=== PATIENT | female | born 1980 | race Asian ===

== ENCOUNTER → 2017-11-27 | Outpatient (CLI) | payer OTHER ==
[~2017-11-27] MED LIST: CYCL10TA29 PO; IBUP800T37 PO; OXYC-865 PO; TENO60PO PO
--- NOTE | 2017-11-27 12:05 | RADIOLOGY IMAGING REPORT ---
FACILITY: [facility] PATIENT NAME: Benjie Shields : 1980 MR: [id number] V: [id number] EXAM DATE: ORDERING PHYSICIAN: SARAH WILKS TECHNOLOGIST: Location: [facility] [place] Patient: Benjie Shields : 1980 Visit/Account:[id number] Date of Sevice: 11/27/2017 LIVER HISTORY: hepatitis B infection x20 years COMPARISON: Liver ultrasound February 28, 2016 FINDINGS: Gallbladder: Unremarkable; no stones or sludge. Liver: The liver appears mildly heterogeneous although discrete mass is not identified Common duct: Normal, two mm diameter. Pancreas: Partially obscured by bowel, visualized aspects unremarkable. Right kidney: Unremarkable as imaged measuring 11 cm in length Upper abdominal aorta and IVC: Patent. Ascites: None visualized. IMPRESSION: Liver appears heterogeneous although discrete mass is not demonstrated Report Dictated By: Latoya Marcus MD at 11/27/2017 11:58 AM Report E-Signed By: Latoya Marcus MD at 11/27/2017 12:02 PM COCON:GERMAN
== END ==
LOC: US 01:23
PROVIDERS: ATTEND Internal Medicine
DX: R16.0 Hepatomegaly, not elsewhere classified (principal)
CPT/HCPCS: 76705

== ENCOUNTER 2018-09-28 01:40 | Inpatient (IN) | payer OTHER ==
[~2018-09-28] VITALS: Ht 165.1 cm; Wt 73.9 kg
[2018-09-28] VITALS (31 sets, daily range): BP systolic 87–189; BP diastolic 53–130; Ht 165.1 cm; Wt 73.9 kg
[2018-09-28] MEDS ORDERED: LR(*) 1000 ML BAG 1,000 ML IV PRN (01:42)
[2018-09-28] MEDS ORDERED: MAGNESIUM SUL* 4 GM/100 ML BAG 100 ML IVPB ONE (02:15)
[2018-09-28] MEDS ORDERED: LABETALOL HCL 20 MG/4 ML SYR IVP PRN ×2 (02:15→03:10)
[2018-09-28] MEDS ORDERED: hydrALAZINE HCL 20 MG/ML VIAL IVP PRN (02:15)
[2018-09-28] MEDS ORDERED: CALCIUM GLUC 10% 100 MG/ML VL IVP ONE (02:15)
[2018-09-28] MEDS ORDERED: NIFEdipine 10 MG CAP PO STA (02:32)
[2018-09-28] MEDS ORDERED: NIFEdipine 10 MG CAP PO ONE (02:40)
[2018-09-28] MEDS ORDERED: ONDANSETRON 4 MG/2 ML VIAL ONE (02:55)
[2018-09-28] MEDS ORDERED: OXYTOCIN 10 UNIT/ML SDV ONE (02:55)
[2018-09-28] MEDS ORDERED: fentaNYL CITR 100 MCG/2 ML AMP ONE (02:55)
[2018-09-28] MEDS ORDERED: MORPHINE PF 5 MG/10 ML AMP ONE (02:55)
[2018-09-28 03:00] LABS: PLATELET COUNT, AUTOMATED 136 K/uL (150-450)
--- NOTE | 2018-09-28 03:06 | History & Physical ---
History of Present Illness Estimated Gestational Age: 37.3 Chief Complaint Uterine contractions History of Present Illness 38-year-old at 37w3d presents to L&D for complaints of contractions. She denies vaginal bleeding. She reports movement. She does report headache, blurry vision and right upper quadrant abdominal pain. She reports her blood pressure was elevated last week. She is scheduled for a repeat cesa rean this next week. Her PNC is by [facility]. is complicated by AMA ([id number] normal), hepatitis B positive (viral load <1), a [id number] posterior fibroid and history of delivery. History Patient's Blood Type: B Positive Rubella Status: Immune Group B Strep Screen: Negative Obstetrical History: G1: 41wk PLTCD in 2012 G2: 11/2017 SAB G3: Current Past Medical History: PMH: Hepatitis B PSH: Allergies: Coded Allergies: No Known Drug Allergies (Unverified , 10/05/16) Social History: No T/E/D. . Med Rec Home Meds Active Scripts Cyclobenzaprine Hcl (CYCLOBENZAPRINE HCL) 10 Mg Tablet, 5-10 MG PO TID PRN for MUSCLE SPASMS, #30 TAB Prov:JOHN MIRELES PRESS OPERATOR AUTOMATIC 10/05/16 Reported Medications Tenofovir Disoproxil Fumarate (VIREAD) 60 Gm Powder, 60 GM PO 10/05/16 Review of Systems Constitutional: No Fever Neurological: No Syncope Eyes: Vision Change Cardiovascular: No Chest Pain Respiratory: No Shortness of Breath, No Cough Gastrointestinal: No Nausea, No Vomiting, No Diarrhea; Abdominal Pain Genitourinary: No Dysuria Musculoskeletal: No Pain Psychiatric: No Depression, No Anxiety Exam General Exam Vital Signs Severe BPs on admission; General Apperance: Alert/Awake/No Acute Distress Neuro: No Gross deficits Eyes: Normal Extraocular Movement & Vison Cardiovascular: Regular Rate and Rhythm Respiratory: No Respiratory Distress, Clear to Auscultation Abdomen: Gravid - Non-Tender : Normal Musculoskeletal: No Weakness/Pain Extremities: Reflexes (3/4 bilateral lower extremities DTR ), Clonus, Edema (1+ bilateral LE) Integumentary: Skin Intact without Lesions or Rash Psychological: Alert & Oriented X3, Appropriate Mood & Affect Cervical Dialation: 1 Cervical Effacement (%): 75 Uterine Contractions(Q min): 4 Uterine Contraction Strength: Mild UC Resting Tone: Soft Fetus Feeling Movement?: Yes FHT Category: I Medical Decision Making Pre-Admit Course Medical Record Review: Yes VTE Prophylasis: Adult Deep Vein Thrombosis/Pulmonary: No Pharmacological Contraindicati: Surgical Contraindication Assessment and Plan Problems: (1) Severe pre-eclampsia in third trimester Assessment & Plan: 38-year-old at 37w3d presented to L&D for complaints of contractions. She is found to have severe range BP. She was given one dose of Procardia po during attempts at IV start. She then was given Labetalol 20mg IV but not great response. I have now ordered Labetalol 40mg IV. Labs pending. Magnesium started. Once stabilized, will proceed to the OR. (2) History of delivery affecting Assessment & Plan: She is planning a repeat CD. Will proceed to the OR once stable from a preeclampsia standpoint. (3) Hepatitis B affecting Assessment & Plan: Last viral load nondetectable, per record, but I am not certain when that lab was drawn. (4) AMA (advanced maternal age) multigravida 35+ Assessment & Plan: [id number] normal. Reassuring anatomy ultrasound. (5) 37 weeks gestation of FREDERICK HOANG MD Sep 28, 2018 02:51
[2018-09-28] MEDS ORDERED: CLINDAMYCIN(*) 900 MG/NS 50 ML 50 ML IVPB ONE (03:20)
[2018-09-28] MEDS ORDERED: LR(*) 1000 ML BAG 1,000 ML IV SCH (03:22)
[2018-09-28] MEDS ORDERED: FAMOTIDINE(*) 20MG/50ML PREMIX 50 ML IVPB ONE ×2 (03:25→09:19)
[2018-09-28] MEDS ORDERED: FAMOTIDINE 20 MG/50 ML PREMIX IVPB ONE (03:25)
[2018-09-28] MEDS ORDERED: METOCLOPRAMIDE 10 MG/2 ML SDV IVP ONE (03:25)
[2018-09-28] MEDS: MAGNESIUM SULF 20 GM/500 ML IV 500 ML IV SCH ×2 (03:28→12:27)
[2018-09-28] MEDS ORDERED: ONDANSETRON 4 MG/2 ML VIAL IVP ONE (03:30)
--- NOTE | 2018-09-28 03:43 | Labor Progress Note ---
Labor Subjective Progress Notes Subjective Pt reports feeling much improved. She has now consulted with DIRECTOR INTELLIGENCE [employer]. She has no questions about . Labs from [facility] received: -11/21/2017: Hep B viral load not detectable -09/18/18: PLT 132 -09/19/18: 24hr urine protein 220mg Labor Objective Vital Signs Last BP much improved - see QS Fetus FHT Category: I General Exam General Appearance: Alert/Awake/No Acute Distress Psychological: Alert & Oriented X3, Appropriate Mood & Affect Other Result Diagram: 09/28/18 0245 09/28/18 0245 Assessment and Plan Problems: (1) Severe pre-eclampsia in third trimester Assessment & Plan: Blood pressure finally responded to Labetalol 40mg once. Her platelets are stable from 132 on 09/18/18. CMP is normal. Pr:Cr = 4.4. Will proceed to the OR with spinal anesthetic. Continue magnesium. (2) History of delivery affecting Assessment & Plan: She is planning a repeat CD. Will proceed to the OR. (3) Hepatitis B affecting Assessment & Plan: Last viral load nondetectable 11/21/2017. (4) AMA (advanced maternal age) multigravida 35+ Assessment & Plan: [id number] normal. Reassuring anatomy ultrasound. (5) 37 weeks gestation of FREDERICK HOANG MD Sep 28, 2018 03:43
[2018-09-28] MEDS ORDERED: KETOROLAC 30 MG/ML VIAL ONE (03:46)
[2018-09-28] MEDS ORDERED: ePHEDrine 25 MG/5 ML DISP.SYR IVP ONE ×2 (03:54→04:35)
[2018-09-28] MEDS ORDERED: DLR(*) 1000 ML BAG 1,000 ML IV PRN (04:59)
[2018-09-28] MEDS ORDERED: OXYTOCIN 30 UNIT/D5LR 500 ML 500 ML IV PRN (04:59)
--- NOTE | 2018-09-28 04:59 | Post Operative Note ---
Operative Note - TRUST MANAGER Operative Day Date: Sep 28, 2018 Physicians Surgeon: Delia Anesthesia: Spinal, Aleyda Nath Diagnosis Pre-Op Diagnosis: IUP at 37w3d with history of delivery and desire for repeat Preeclampsia with severe features Post-Op Diagnosis: IUP at 37w3d with history of delivery and desire for repeat Preeclampsia with severe features Viable male at 0406hrs, 2520g (5#8.9oz), Apgars 9/9 Procedure Procedure(s): RLTCD Specimen Removed:(Maybe N/A): None Fluids Fluids: IVF: 700cc UOP: 400cc Estimated Blood Loss: 700cc FREDERICK OHANG MD Sep 28, 2018 04:59
[2018-09-28] MEDS ORDERED: ONDANSETRON 4 MG/2 ML VIAL IV PRN (05:00)
[2018-09-28] MEDS ORDERED: PROMETHAZINE 25 MG/ML 1 ML AMP IVP PRN (05:00)
[2018-09-28] MEDS ORDERED: MAGNESIUM HYDROXIDE* 30ML UDCP PO PRN (05:00)
[2018-09-28] MEDS ORDERED: ACETAMINOPHEN 325 MG TAB PO PRN (05:00)
[2018-09-28] MEDS ORDERED: LANOLIN OINT 7 GM TUBE TP PRN (05:00)
[2018-09-28] MEDS ORDERED: MEASLES,MUMP,RUBELLA VAC 0.5ML SC ONE (05:00)
[2018-09-28] MEDS ORDERED: SIMETHICONE 80 MG CHEW CHEW PRN (05:00)
[2018-09-28] MEDS ORDERED: DIPHTH/TETANUS/ACEL. PERTUSSIS IM ONE (05:00)
[2018-09-28] MEDS ORDERED: INFLUENZA VIRUS VAC 0.5ML SYR IM ONE (05:00)
--- NOTE | 2018-09-28 05:00 | Anesthesia OB Pre-Anes Eval ---
History of Present Illness Anesthesia Start Date: Sep 28, 2018 Anesthesia Start Time: 03:37 OB Anesthesia Diagnosis: repeat c/section Current Complication: gestational hypertention EDC: Oct 16, 2018 : 3 Para: 1 Vital Signs: Vital Signs 09/28/18 04:40 Temp 98.0 Pulse 78 Resp 24 B/P (MAP) 89/64 (72) Pulse Ox 97 O2 Delivery Nasal Cannula O2 Flow Rate 2.0 Pain Ratin Heart Tones: 132 Result Diagram: 09/28/185 09/28/18244 Height (Inches): 65 Weight (Pounds): 1341 Past Medical History Medical History: other (Hep B) Surgical History: Previous Anesthesia: spinal Attended Childbirth Classes?: No Hx Anesthesia Reactions: No Hx Family Anesthesia Reaction: No Current Medications: magnesium sulfate Home Meds Active Scripts Cyclobenzaprine Hcl (CYCLOBENZAPRINE HCL) 10 Mg Tablet, 5-10 MG PO TID PRN for MUSCLE SPASMS, #30 TAB Prov:JOHN MIRELES AIRCRAFT ENGINE ASSEMBLER 10/05/16 Reported Medications Tenofovir Disoproxil Fumarate (VIREAD) 60 Gm Powder, 60 GM PO 10/05/16 Allergies: Coded Allergies: No Known Drug Allergies (Unverified , 10/05/16) Anesthesia OB ROS Neurological: No migraines/headaches, No seizures, No neuropathy, No other ENT: Denies Tooth caps, Denies Loose teeth, Denies Chipped teeth, Denies Dentures, Denies Bridges, Denies Retainers, Denies Veneers, Denies Implants, Denies Tongue ring, Denies Other Pulmonary: No asthma, No smoker (pks/day/yrs), No other Airway Class: ll Cardiovascular ROS: No edema, No arrhythmia, No other GI ROS: NPO Last Solids Date: Sep 27, 2018 Last Solids Time: 19:30 ROS: Other (Hep B) Endocrine ROS: No diabetes, No gestational diabetes, No thyroid disorder, No other Musculoskeletal ROS: No low back pain, No low back injury, No scoliosis, No other Assessment and Plan Anesthesia Plan: SAB Anesthesia Stop Day: Sep 28, 2018 Anesthesia Stop Time: 04:48 CATHERINE JONAS CRNA Sep 28, 2018 05:00
[2018-09-28] MEDS ORDERED: KETOROLAC 30 MG/ML VIAL IVP SCH ×2 (06:00→10:30)
[2018-09-28] MEDS ORDERED: PREN1COM5 PO (07:30)
--- NOTE | 2018-09-28 08:15 | OB/GYN Progress Note ---
OB Subjective Progress Notes Subjective Pt is sleeping heavily right now. RN reports minimal pain prior to her nap, normal lochia and no preeclampsia symptoms prior to nap. OB Objective Physical Exam Vital Signs Date Time Temp Pulse Resp B/P (MAP) Pulse Ox O2 Delivery O2 Flow Rate FiO2 09/28/18 05:55 98.0 78 16 102/59 (73) 93 Room Air 09/28/18 05:35 2.0 Intake and Output 09/28/18 07:00 Output Total 50 ml Balance -50 ml Output Urine Total 50 ml General Appearance: Other (Sleeping) Respiratory: No Respiratory Distress Result Diagram: 09/28/1824409/28/18244 Assessment and Plan Problems: (1) Severe pre-eclampsia in third trimester Assessment & Plan: Pt will continue magnesium until 0500 09/29/18. Matute to stay in until that time. Labs ordered for 0900. BP is quite low right now, most likely due to combination of antihypertensives and spinal. Will continue to monitor closely for symptoms or signs of worsening status. (2) Status post delivery Assessment & Plan: POD#0 s/p RLTCD. Routine postop orders. (3) Hepatitis B affecting Assessment & Plan: Last viral load nondetectable 11/21/2017. Peds has been notified. (4) History of delivery affecting FREDERICK HOANG MD Sep 28, 2018 08:15
[2018-09-28] MEDS: DOCUSATE CALCIUM 240 MG CAP PO SCH ×2 (09:00→22:40)
[2018-09-28] MEDS: FAMOTIDINE 20 MG TAB PO SCH ×2 (09:00→22:40)
[2018-09-28] MEDS ORDERED: FLUSH 10 ML SYR IV SCH (09:00)
[2018-09-28] MEDS ORDERED: IBUPROFEN 800 MG TAB PO SCH (09:00)
[2018-09-28] MEDS ORDERED: CLINDAMYCIN(*) 900 MG/NS 50 ML 50 ML ONE (09:19)
[2018-09-28] MEDS ORDERED: METOCLOPRAMIDE 10 MG/2 ML SDV ONE (09:20)
[2018-09-28] MEDS: KETOROLAC 30 MG/ML VIAL IVP SCH ×2 (12:26→18:11)
--- NOTE | 2018-09-28 14:21 | Anesthesia Post Eval Note ---
Anesthesia Post Eval Note Vital Signs 09/28/18 09/28/18 09/28/18 09/28/18 05:35 05:55 11:30 12:30 Temp 98.0 Pulse 83 Resp 16 B/P (MAP) 105/64 (78) Pulse Ox 91 O2 Delivery Room Air O2 Flow Rate 2.0 Pt able to participate in Eval: Yes Cardiovascular Status: Satisfactory Respiratory Status: Satisfactory Pain Managment: Satisfactory PO Nausea/Vomiting: Satisfactory Temperature Management: Satisfactory Mental Status: Satisfactory, Alert, Oriented X3 Post-Op Hydration Status: Satisfactory, Tolerating PO Well Anesthesia Tolerance: Remains on bedrest and Mag. chava hodgson BETH CRNA Sep 28, 2018 14:21
[2018-09-28] MEDS: DLR(*) 1000 ML BAG 1,000 ML IV PRN (15:50)
[2018-09-28] MEDS ORDERED: MAGNESIUM SULF 20 GM/500 ML IV 500 ML IV SCH (21:34)
[2018-09-28] MEDS ORDERED: MAGNESIUM SULF 20 GM/500 ML IV 500 ML ONE (22:03)
[2018-09-29] VITALS (12 sets, daily range): BP systolic 98–122; BP diastolic 63–79
--- NOTE | 2018-09-29 00:42 | OPERATIVE REPORT 1 ---
EVENT DATE: September 28, 2018 SURGEON: Jane Lin MD ANESTHESIA: Spinal by Aleyda Nath CRNA PREOPERATIVE DIAGNOSES 1. Intrauterine at 37 weeks and 3 days, with history of delivery and desire for repeat. 2. Preeclampsia with severe features. POSTOPERATIVE DIAGNOSES 1. Intrauterine at 37 weeks and 3 days, with history of delivery and desire for repeat. 2. Preeclampsia with severe features. 3. Delivery of a viable male infant at 0406 hours, weighing 2520 g or 5 pounds 8.9 ounces, with Apgars of 9 at one minutes and 9 at five minutes. PROCEDURE PERFORMED Repeat low transverse delivery. INTRAVENOUS FLUIDS 700 mL. URINE OUTPUT 400 mL ESTIMATED BLOOD LOSS 700 mL. INDICATIONS FOR PROCEDURE This patient is a 38-year-old 3, para 1-0-1-1, who presents at 37 weeks and 3 days to Labor and Delivery with complaints of uterine contractions. At the time of presentation, she was noted to have extremely elevated blood pressures in the 180/120 range. She was admitted and administered nifedipine 10 mg orally, as she did not yet have an IV. An IV access was then obtained, and she received 20 mg of labetalol IV. Magnesium bolus was then initiated. The patient did not have a very good response from the labetalol or Procardia. Therefore, she was given labetalol 40 mg IV, which she did finally respond to. Her blood pressure came down to within normal limits, and she began feeling better. At this time, she was consented for a repeat delivery, given that she was contacting every four minutes and is greater than 37 weeks with severe preeclampsia. After discussing the risks, benefits, and alternatives, the patient did elect to proceed. Please see the history and physical for full details. DESCRIPTION OF PROCEDURE The patient was properly identified and taken to the operating room. She was administered a spinal anesthetic and placed in the dorsal lithotomy position. The Matute catheter was then place, and she was prepped and draped in the usual fashion for a lower abdominal surgery. After adequate anesthesia was confirmed, her prior incision was noted to have a keloid scar. This scar was excised sharply, and the incision was then carried down to the level of the rectus fascia, which was nicked in the midline, and the incision was extended bilaterally. The rectus fascia was from the underlying rectus muscle using a combination of electrosurgery and blunt dissection. This was dissected up to the infraumbilical plane. The peritoneum was then identified and entered in a sharp fashion, and the abdominal incision was extended with a combination of blunt and electrocautery. At this time, a bladder blade was then placed, and the vesicouterine peritoneum was brought down off the lower uterine segment to allow for a hysterotomy safely. The hysterotomy was then performed without difficulty and extended in a cephalocaudad manner. The amniotic sac was then ruptured with return of clear fluid. The 's vertex was then delivered easily, followed by the anterior shoulder and posterior shoulder. The remainder of the was easily delivered. The had spontaneous cry and spontaneous movement of all four extremities. The infant's oropharynx and nasopharynx were bulb-suctioned, and the was dried and stimulated. After 40 seconds, the cord was clamped x2 and cut, and the infant was passed to nursing personnel in good condition. Dr. Fish was present at the time of delivery. Placenta was then delivered manually and passed off the table and sent to pathology. Pitocin was started through the IV fluid to help firm the uterus. The patient did have a known 6 cm fibroid antenatally; therefore, the uterus was chosen not to be exteriorized. The uterus was cleared of any remaining clots or debris. The uterine incision was then reapproximated using an 0 Vicryl working from one apex to the next. A second imbricating layer of 0 Monocryl was then utilized to reapproximate the uterine incision. Hemostasis was then assured. The paracolic gutters were cleared of clots or debris. The peritoneum was then identified and reapproximated using a 3-0 Monocryl, followed by reapproximation of the rectus muscle in the midline. The rectus muscle was then copiously irrigated and noted to be hemostatic. The rectus fascia was then reapproximated using an 0 Vicryl in a running nonlocking fashion, working from one apex to the next. The subcutaneous tissue was irrigated and made hemostatic with electrocautery. The subcutaneous tissue was then reapproximated using a 3-0 Monocryl, followed by closure of the skin with Insorb danae. A Primapore dressing was placed, followed by a pressure dressing. The patient tolerated this procedure well and recovered in Labor and Delivery with her . Her magnesium will remain for at least 24 hours after delivery. [facility]
[2018-09-29] MEDS: KETOROLAC 30 MG/ML VIAL IVP SCH (01:30)
[2018-09-29] MEDS: DLR(*) 1000 ML BAG 1,000 ML IV PRN (01:54)
[2018-09-29] MEDS: IBUPROFEN 800 MG TAB PO SCH ×3 (06:11→22:45)
--- NOTE | 2018-09-29 07:17 | RADIOLOGY IMAGING REPORT ---
FACILITY: [facility] PATIENT NAME: Benjie Shields : 1980 MR: [id number] V: [id number] EXAM DATE: ORDERING PHYSICIAN: FREDERICK HOANG TECHNOLOGIST: Location: [facility] [place] Patient: Benjie Shielsd : 1980 Visit/Account:[id number] Date of Sevice: 09/29/2018 EXAMINATION: Portable chest radiograph single view at 0648 hours HISTORY: Chest pressure with diminished lung sounds. COMPARISON: None. FINDINGS: A single portable AP view of the chest is obtained. Lines/tubes: None. Lungs/pleura: No focal consolidation or pleural effusion. Heart: Negative. Mediastinum: Negative. Bony structures/body wall: Negative. IMPRESSION: No radiographic evidence of acute cardiopulmonary disease. Report Dictated By: Shi Shipman MD at 09/29/2018 7:12 AM Report E-Signed By: Shi Shipman MD at 09/29/2018 7:13 AM WSN:[id number]
--- NOTE | 2018-09-29 08:57 | OB/GYN Progress Note ---
OB Subjective Progress Notes Subjective Was on magnesium until this morning at 0400. Feeling improved since it was stopped. Has not ambulated yet. Pressures are stable. GI: NEG Nausea : Voiding Well (catheter) Pain: Mild OB Objective Physical Exam Vital Signs Date Time Temp Pulse Resp B/P (MAP) Pulse Ox O2 Delivery O2 Flow Rate FiO2 09/29/18 07:56 98.1 83 15 110/77 (88) 96 Room Air 09/29/18 06:30 1.0 Intake and Output 09/29/18 07:00 Intake Total 3914 ml Output Total 5185 ml Balance -1271 ml Intake Oral 380 ml IV Total 3534 ml Output Urine Total 5185 ml # Voids 2 General Appearance: Alert/Awake/No Acute Distress, Other (Sleeping) Neurological: No Gross deficits Cardiovascular: Normal Rhythm & Peripheral Pulses, Regular Rate and Rhythm Respiratory: No Respiratory Distress, Clear to Auscultation Abdomen: Soft, Non-Tender, Non-Distended Incision: Clean, Dry, Intact Psychological: Alert & Oriented X3, Appropriate Mood & Affect Result Diagram: 09/29/1852009/29/18520 Assessment and Plan JET MECHANIC Plan: Routine Post- Care, Routine Post-Op Care Problems: (1) Severe pre-eclampsia in third trimester Assessment & Plan: BPs stable and had no lab abnormalities. Continue to monitor. (2) 37 weeks gestation of (3) Hepatitis B affecting (4) AMA (advanced maternal age) multigravida 35+ (5) Other specified aftercare following surgery Assessment & Plan: Ambulate later today. May shower later if stable on her feet. TYLER BRIDGES MD Sep 29, 2018 08:57
[2018-09-29] MEDS: FAMOTIDINE 20 MG TAB PO SCH ×2 (10:17→21:12)
[2018-09-29] MEDS: DOCUSATE CALCIUM 240 MG CAP PO SCH ×2 (10:17→21:12)
[2018-09-30] VITALS (23 sets, daily range): BP systolic 127–163; BP diastolic 87–115
[2018-09-30] MEDS: IBUPROFEN 800 MG TAB PO SCH ×3 (06:08→21:22)
[2018-09-30 06:41] LABS: PLATELET COUNT, AUTOMATED 113 K/uL (150-450)
[2018-09-30] MEDS ORDERED: LABETALOL HCL 100 MG TAB PO ONE ×2 (08:00→17:15)
--- NOTE | 2018-09-30 08:01 | OB/GYN Progress Note ---
OB Subjective Progress Notes Subjective Blood pressure has come up consistently. Otherwise feeling well. GI: NEG Nausea : Voiding Well Pain: Mild OB Objective Physical Exam Vital Signs Date Time Temp Pulse Resp B/P (MAP) Pulse Ox O2 Delivery O2 Flow Rate FiO2 09/30/18 07:00 16 145/105 (118) 09/30/18 06:10 97.3 81 Room Air 09/29/18 21:01 90 09/29/18 06:30 1.0 Intake and Output 09/30/18 07:00 Intake Total 450 ml Output Total 200 ml Balance 250 ml Intake Oral 450 ml Output Urine Total 200 ml # Voids 3 General Appearance: Alert/Awake/No Acute Distress, Other (Sleeping) Neurological: No Gross deficits Cardiovascular: Normal Rhythm & Peripheral Pulses, Regular Rate and Rhythm Respiratory: No Respiratory Distress, Clear to Auscultation Abdomen: Soft, Non-Tender, Non-Distended Incision: Clean, Dry, Intact Psychological: Alert & Oriented X3, Appropriate Mood & Affect Result Diagram: 09/30/1831 09/30/18 0615 Assessment and Plan MEDICAL EDUCATOR Plan: Routine Post- Care, Routine Post-Op Care Problems: (1) Severe pre-eclampsia in third trimester (2) 37 weeks gestation of (3) Hepatitis B affecting (4) AMA (advanced maternal age) multigravida 35+ (5) Other specified aftercare following surgery Assessment & Plan: Started Labetalol today. Will see how she responds today. Labs trending normal. Probable home or discharge to room in tomorrow. TYLER BRIDGES MD Sep 30, 2018 08:01
[2018-09-30] MEDS: FAMOTIDINE 20 MG TAB PO SCH ×2 (09:32→21:23)
[2018-09-30] MEDS: DOCUSATE CALCIUM 240 MG CAP PO SCH ×2 (09:32→21:23)
[2018-09-30] MEDS ORDERED: LABETALOL HCL 100 MG TAB PO SCH ×2 (21:00)
[2018-09-30] MEDS ORDERED: NIFEdipine XL 30 MG TABCR PO ONE (22:10)
[2018-10-01] VITALS (9 sets, daily range): BP systolic 109–145; BP diastolic 84–101
[2018-10-01] MEDS: LABETALOL HCL 100 MG TAB PO SCH ×3 (04:06→20:30)
[2018-10-01] MEDS: IBUPROFEN 800 MG TAB PO SCH ×3 (05:54→21:25)
[2018-10-01] MEDS: DOCUSATE CALCIUM 240 MG CAP PO SCH ×2 (09:04→20:30)
[2018-10-01] MEDS: FAMOTIDINE 20 MG TAB PO SCH ×2 (09:04→20:30)
--- NOTE | 2018-10-01 09:40 | OB/GYN Progress Note ---
OB Subjective Progress Notes Subjective Was having BP problems again last night on Labetalol 200 mg BID. Increased to 200 mg q8h and added Procardia ER 60 mg PO x 1 last night and BP improved. She remained asymptomatic during this time. She otherwise is well, just tired. Her pain is well controlled with medication and is ambulating to BR well with no difficulty voiding. GI: NEG Nausea : Voiding Well Pain: Mild OB Objective Physical Exam Vital Signs Date Time Temp Pulse Resp B/P (MAP) Pulse Ox O2 Delivery O2 Flow Rate FiO2 10/01/18 08:15 97.8 89 16 132/101 (111) 94 Room Air 09/29/18 06:30 1.0 Intake and Output 10/01/18 07:00 Intake Total 1160 ml Balance 1160 ml Intake Oral 1160 ml # Voids 6 General Appearance: Alert/Awake/No Acute Distress, Other (Sleeping) Neurological: No Gross deficits Cardiovascular: Normal Rhythm & Peripheral Pulses, Regular Rate and Rhythm Respiratory: No Respiratory Distress, Clear to Auscultation Abdomen: Soft, Non-Tender, Non-Distended Incision: Clean, Dry, Intact Extremities: No Cyanosis,Clubbing or Edema Integumentary: Skin Intact without Lesions or Rash Psychological: Alert & Oriented X3, Appropriate Mood & Affect Result Diagram: 09/30/18 0631 09/30/18 0615 Assessment and Plan Problems: (1) Severe pre-eclampsia in third trimester Assessment & Plan: Continue this BP medication at this schedule and monitor for stability. Adjust as needed. Will likely need another day. (2) 37 weeks gestation of (3) Hepatitis B affecting (4) AMA (advanced maternal age) multigravida 35+ (5) Other specified aftercare following surgery Assessment & Plan: Routine postoperative care. TYLER BRIDGES MD Oct 01, 2018 09:39
[2018-10-01] MEDS ORDERED: ONDANSETRON 4 MG ODT TABDP SL PRN (17:45)
[2018-10-01] MEDS ORDERED: ACETA/BUTAL/CAFF 325/50/40 TAB PO PRN (17:45)
[2018-10-01] MEDS ORDERED: NIFEdipine XL 30 MG TABCR PO SCH (22:00)
[2018-10-02 03:29] VITALS: BP 121/89
[2018-10-02] MEDS: LABETALOL HCL 100 MG TAB PO SCH ×2 (03:31→12:57)
[2018-10-02] MEDS: IBUPROFEN 800 MG TAB PO SCH (07:12)
[2018-10-02 08:00] VITALS: BP 118/81
--- NOTE | 2018-10-02 08:51 | OB/GYN Progress Note ---
OB Subjective Progress Notes Subjective Doing well. No problems. BP stable now on PO meds. Headache yesterday relieved by Fioricet. GI: NEG Nausea : Voiding Well Pain: Mild OB Objective Physical Exam Vital Signs Date Time Temp Pulse Resp B/P (MAP) Pulse Ox O2 Delivery O2 Flow Rate FiO2 10/02/18 03:29 98.4 68 15 121/89 (100) 92 Room Air 09/29/18 06:30 1.0 Intake and Output 10/02/18 07:00 Intake Total 1260 ml Balance 1260 ml Intake Oral 1260 ml # Voids 1 General Appearance: Alert/Awake/No Acute Distress, Other (Sleeping) Neurological: No Gross deficits Cardiovascular: Normal Rhythm & Peripheral Pulses, Regular Rate and Rhythm Respiratory: No Respiratory Distress, Clear to Auscultation Abdomen: Soft, Non-Tender, Non-Distended Incision: Clean, Dry, Intact Extremities: No Cyanosis,Clubbing or Edema Integumentary: Skin Intact without Lesions or Rash Psychological: Alert & Oriented X3, Appropriate Mood & Affect Result Diagram: 09/30/1831 09/30/18 0615 Assessment and Plan Problems: (1) Severe pre-eclampsia in third trimester Assessment & Plan: Home on same meds. To office Mon/Tues next week for BP check. Wean off medication as needed. 6 week PP exam. (2) 37 weeks gestation of (3) Hepatitis B affecting (4) AMA (advanced maternal age) multigravida 35+ (5) Other specified aftercare following surgery TYLER BRIDGES MD Oct 02, 2018 08:51
[2018-10-02] MEDS ORDERED: BUTA1TAB14 PO (09:02)
[2018-10-02] MEDS ORDERED: IBUP800T37 PO (09:02)
[2018-10-02] MEDS ORDERED: OXYC-865 PO (09:02)
--- NOTE | 2018-10-02 09:04 | OB/GYN Discharge Summary ---
Discharge Summary Reason for Hosp/Final Diag: (1) Severe pre-eclampsia in third trimester Hospital Course & Plan: Home on same meds. To office Mon/Tues next week for BP check. Wean off medication as needed. 6 week PP exam. (2) 37 weeks gestation of (3) Hepatitis B affecting (4) AMA (advanced maternal age) multigravida 35+ (5) Other specified aftercare following surgery Hospital Course & Plan: s/p Lates Vital Signs Vital Signs Date Time Temp Pulse Resp B/P (MAP) Pulse Ox O2 Delivery O2 Flow Rate FiO2 10/02/18 03:29 98.4 68 15 121/89 (100) 92 Room Air 09/29/18 06:30 1.0 Weight (Pounds): 163 Result Diagram: 09/30/1863009/30/18614 Condition: Improved Discharge: Home, Self [facility] Meds Active Scripts Oxycodone Hcl/Acetaminophen (PERCOCET 5-325 MG TABLET) 1 Each Tablet, 1 EACH PO Q4H PRN for PAIN, #20 TAB 0 Refills Prov:TYLER ARIZA MD 10/02/18 Butalb/Acetaminophen/Caff 50-325-40 Mg (FIORICET 50-325-40) 1 Each Tablet, 1-2 EACH PO Q6H PRN for HEADACHE, #30 TAB 0 Refills Prov:TYLER ARIZA MD 10/02/18 Reported Medications Prenat Vit Comb.10/Iron/Fa/Dha (VITAFOL-OB+DHA COMBO PACK) 1 Each Combo..pkg, 1 EACH PO 09/28/18 Tenofovir Disoproxil Fumarate (VIREAD) 60 Gm Powder, 300 MG PO QDAY 10/05/16 Discontinued Scripts Cyclobenzaprine Hcl (CYCLOBENZAPRINE HCL) 10 Mg Tablet, 5-10 MG PO TID PRN for MUSCLE SPASMS, #30 TAB Prov:JOHN MIRELES 10/05/16 Follow up Referrals: CA[facility]ER - 10/06/18 @ [facility] with TYLER ARIZA MD Follow up with: Dr. Ariza [phone] Follow up in: 3-4 days (BP check) Discharge Diet: As Tolerates Discharge Activity: As Tolerates, No Heavy Lifting x 6 wks, No Heavy Lifting > 10lb, Pelvic Rest Copies to: TYLER ARIZA MD ; TYLER ARIZA MD Oct 02, 2018 09:04
[2018-10-02] MEDS: FAMOTIDINE 20 MG TAB PO SCH (09:34)
[2018-10-02] MEDS: DOCUSATE CALCIUM 240 MG CAP PO SCH (09:34)
[2018-10-02 13:00] VITALS: BP 127/94
[2018-10-02] MEDS ORDERED: IBUPROFEN 800 MG TAB PO SCH (15:00)
[2018-10-02] MEDS ORDERED: NIFEdipine XL 30 MG TABCR PO SCH (22:00)
== END 2018-10-02 16:35 | disposition home or self-care (01) | DRG 787 ==
LOC: OB 01:40 → OBSVTOIN 01:40 → UNDOADMOB 01:40 → INTOOBSV 01:40 → OB 08:55
PROVIDERS: ADMIT Obstetrics & Gynecology; ATTEND Obstetrics & Gynecology
PROC: 10D00Z1 Extraction of Products of Conception, Low, Open Approach (ICD-10-PCS; principal; 2018-09-28 03:37)
DX: O34.211 Maternal care for low transverse scar from previous cesarean delivery (principal); B19.10 Unspecified viral hepatitis B without hepatic coma; O98.42 Viral hepatitis complicating childbirth; O14.14 Severe pre-eclampsia complicating childbirth; Z3A.37 37 weeks gestation of pregnancy; Z37.0 Single live birth
CPT/HCPCS: 36415; 71045; 82040; 82247; 82310; 82374; 82435; 82565; 82570; 82947; 84075; 84132; 84155; 84156; 84295; 84450; 84460; 84520; 85025; 85027; 86703; 86850; 86900; 86901; 88307; J1885; J2270; J2405; J2590; J2765; J3010; J3475; J3490; S0119

== ENCOUNTER → 2019-01-14 | Outpatient (CLI) | payer OTHER ==
[2018-09-28 02:00] VITALS: BMI 23.0
[~2019-01-14] MED LIST changes: +BUTA1TAB14 PO; +PREN1COM5 PO
== END ==
LOC: LAB 16:07
PROVIDERS: ATTEND Family Medicine
DX: Z02.79 Encounter for issue of other medical certificate (principal)
CPT/HCPCS: 36415; 86480; 87491; 87591